=== PATIENT | female | born 1970 | race Hispanic/Latino ===

== ENCOUNTER → 2018-10-11 | Outpatient (CLI) | payer OTHER ==
[~2018-10-11] MED LIST: ANASTROZOLE1 MG PO; LEXAPRO10 MG PO; LISINOPRIL10 MG PO; NITROFURANTOIN100 MG PO
--- NOTE | 2018-10-11 14:45 | Diagnostic Imaging Report ---
Exam: KUB - 2 views Clinical History: Renal calculi Comparison: None. Findings: There are 2 focal calcific densities overlying the mid to lower pole of the right kidney, the more superior of which measures 3 mm and more inferior of which measures 5 mm. Right nephroureteral stent is in place. Possible approximately 7mm calcific density overlying the mid to upper pole of left kidney. Phleboliths overlie the pelvis. The osseous structures appear unremarkable. Nonobstructive bowel gas pattern. Impression: Two lower pole right renal calculi as above with right nephroureteral stent in place. Possible 7mm left renal calculus. Signed by: Garth Reid MD on 10/11/2018 2:42 PM
== END ==
LOC: RAD 13:43
PROVIDERS: ATTEND Urology
DX: N20.0 Calculus of kidney (principal)
CPT/HCPCS: 74018

== ENCOUNTER → 2018-10-12 | Day surgery (SDC) | payer OTHER ==
[~2018-10-12] MED LIST changes: +B&O 60MG R/S 60 MG SUPP PR ONE; +CEFTRIAXONE SOD 1 GM/NS 50 ML 50 ML IV ONE; +DEXAMETHASONE SOD PHOS INJ 4 MG/ML VIAL ONE; +FENTANYL CITRATE/PF 100MCG/2 ML INJ ONE; +IOPAMIDOL 610MG/1ML 300 MG/ML VIAL IV ONE; +LIDOCAINE HCL 2% LOCAL INJ 5 ML SDV VIAL INJ ONE; +MIDAZOLAM HCL 2 MG/2 ML VIAL ONE; +ONDANSETRON HCL INJ 2MG/ML 2ML 2 MG/ML VIAL ONE; +PROPOFOL IV EMULSION 10 MG/ML 20 ML VIAL ONE; +SEVOFLURANE INHAL SOLN 250 ML PEN BTL ONE; +VANCOMYCIN 1GM/NS 250 ML 250 ML ONE
--- OUTSIDE RECORDS SUMMARY | 2018-10-12 06:21 | XMS REPORT | Clinical Summary ---
Author Author [facility] Address Unknown Phone Unavailable Care Team Providers Care Flap Curer Name Role Phone Ketan Acosta MD PCP Allergies No Known Allergies Medications End Date Status Medication Sig Dispensed Refills Start Date Active anastrozole (ARIMIDEX) 1 Take 1 mg by 0 mg chemo tablet mouth. 8 Active cholecalciferol, vitamin Take 4,000 0 D3, 400 unit/drop drops Units by 5 mouth. Active lisinopril 0 (PRINIVIL,ZESTRIL) 10 mg 9 tablet Active escitalopram (LEXAPRO) 20 TAKE 1 TABLET 0 MG tablet (20 MG TOTAL) 7 BY MOUTH DAILY. Active Problems Not on file Encounters Care Team Description Date Type Specialty Stewart De Luna Jr., MD Flank pain (Primary Dx) 07/17/2018 Emergency Emergency Medicine after 10/11/2017 Social History Date Tobacco Use Types Packs/Day Years Used Never Smoker Smokeless Tobacco: Never Used Alcohol Use Drinks/Week oz/Week Comments Yes Sex Assigned at Date Recorded Not on file Industry Job Start Date Occupation Not on file Not on file Not on file Travel End Travel History Travel Start No recent travel history available. Last Filed Vital Signs Time Taken Vital Sign Reading 07/17/2018 6:43 PM CDT Blood Pressure 157/95 07/17/2018 6:43 PM CDT Pulse 70 07/17/2018 6:43 PM CDT Temperature 37.1 C (98.8 F) 07/17/2018 6:43 PM CDT Respiratory Rate 20 07/17/2018 6:43 PM CDT Oxygen Saturation 98% - Inhaled Oxygen - Concentration 07/17/2018 6:43 PM CDT Weight 81.6 kg (180 lb) 07/17/2018 6:43 PM CDT Height 162.6 cm (5' 4") 07/17/2018 6:43 PM CDT Body Mass Index 30.9 Plan of Treatment Health Maintenance Due Date Last Done Comments INFLUENZA VACCINE 11/03/2018 Procedures Comments Procedure Name Priority Date/Time Associated Diagnosis ESTIMATED GFR STAT 07/17/2018 7:42 PM CDT LIPASE LEVEL STAT 07/17/2018 7:42 PM CDT COMPREHENSIVE METABOLIC STAT 07/17/2018 PANEL 7:42 PM CDT HC COMPLETE BLD COUNT STAT 07/17/2018 W/AUTO DIFF 7:42 PM CDT GRAM STAIN STAT 07/17/2018 7:18 PM CDT URINE CULTURE STAT 07/17/2018 7:18 PM CDT HCG QUALITATIVE, URINE STAT 07/17/2018 SCREEN 6:45 PM CDT URINALYSIS SCREEN AND STAT 07/17/2018 MICROSCOPY, WITH REFLEX 6:45 PM CDT TO CULTURE after 10/11/2017 Results * Estimated GFR (07/17/2018 7:42 PM CDT) Estimated GFR 88 mL/min/1.73 m2 [place] Comment: JOSEPH CANDELARIA [facility] G1 >=90 Normal or high G2 60-89Mildly decreased J0i77-80 Mildly to moderately decreased Q4i25-86 Moderately to severely decreased G4 15-29Severely decreased G5 <15Kidney failure The eGFR was calculated using the Chronic Kidney Disease Epidemiology Collaboration (CKD-EPI) equation. Interpretation is based on recommendations of the National Kidney Foundation-Kidney Disease Outcomes Quality Initiative (NKF-KDOQI) published in 2014. Specimen Plasma specimen Performing Organization Address City/State/Zipcode Phone Number [facility] [address] [place] [address] PATHOLOGY AND GENOMIC MEDICINE [place] [facility] [address] [place], [place] [id number] [place] [address] * CBC with platelet and differential (07/17/2018 7:42 PM CDT) WBC 11.7 (H) 4.2 - 11.0 k/uL [facility] RBC 4.34 4.04 - 5.86 m/uL [facility] HGB 12.9 11.5 - 15.3 g/dL [facility] HCT 38.8 34.0 - 45.0 % [facility] MCV 89.4 80.0 - 98.[address] [facility] MCH 29.7 27.0 - 34.[address] [facility] MCHC 33.2 31.5 - 36.5 g/dL [facility] RDW - SD 39.3 37.0 - 51.[address] [facility] MPV 10.0 7.4 - 10.[address] [facility] Platelet count 211 150 - 400 k/uL [facility] Nucleated RBC 0.00 /[address] [facility] Neutrophils 72.1 (H) 36.0 - 66.0 % [facility] Lymphocytes 19.3 (L) 24.0 - 44.0 % [facility] Monocytes 7.1 (H) 0.0 - 6.0 % [facility] Eosinophils 0.9 0.0 - 6.0 % [facility] Basophils 0.3 0.0 - 1.2 % [facility] Immature 0.3 0.0 - 1.0 % [place] granulocytes [facility] Specimen Blood Performing Organization Address City/State/Zipcode Phone Number [address] [address] PATHOLOGY AND GENOMIC MEDICINE [address] * Lipase level (07/17/2018 7:42 PM CDT) Lipase 33 13 - 60 U/L [facility] Specimen Plasma specimen Performing Organization Address City/[facility]/Zipcode Phone Number [address] [place] [address] PATHOLOGY AND GENOMIC MEDICINE [facility] [address] * Comprehensive metabolic panel (07/17/2018 7:42 PM CDT) Pathologist [facility] Sodium 137 135 - 150 mEq/L [facility] Potassium 3.7 3.5 - 5.0 mEq/L [facility] Chloride 97 (L) 98 - 112 mEq/L [facility] CO2 24 24 - 31 mmol/L [facility] Anion gap 16@ANIO (H) 7 - 15 mEq/L [facility] BUN 22 (H) 7 - 18 mg/dL [facility] Creatinine 0.80 0.50 - 0.90 mg/dL [facility] Glucose 118 (H) 65 - 100 mg/dL [facility] Calcium 9.8 8.3 - 10.2 mg/dL [facility] Protein 8.1 6.3 - 8.3 g/dL [facility] Albumin 4.2 3.5 - 5.0 g/dL [facility] A/G ratio 1.1 0.7 - 3.8 [facility] Alkaline 90 0 - 104 U/L [place] phosphatase [facility] AST 19 10 - 35 U/L [facility] ALT 23 5 - 50 U/L [facility] Total bilirubin 0.4 0.2 - 1.2 mg/dL [facility] Specimen Plasma specimen Performing Organization Address City/[facility] Phone Number [facility] [address] [place] [phone] PATHOLOGY AND GENOMIC MEDICINE [facility] [address] * Gram stain (07/17/2018 7:18 PM CDT) Gram stain Occasional WBC's [place] result No organisms seen [facility] Comment: HOSPITAL Specimen Information Specimen Source: Urine Specimen Site: Clean catch Specimen Urine - VB3 Performing Organization Address City/[facility]/Zipcode Phone Number [facility] DEPARTMENT OF [address] [place] [address] PATHOLOGY [place] [address] HOSPITAL * Urine culture (07/17/2018 7:18 PM CDT) Urine culture Mixed janel 10-4 col/cc [place] isolate Comment: PENT[facility]OSTALISM Specimen Information HOSPITAL Specimen Source: Urine Specimen Site: Clean catch Specimen Urine Performing Organization Address [facility] Cent[facility] Phone Number [facility] DEPARTMENT [address] [place] [phone] PATHOLOGY [place] [address] HOSPITAL * Urinalysis screen and microscopy, with reflex to culture (07/17/2018 6:45 PM CDT) Specimen site Clean catch [facility] Color, UA Pauline [facility] Appearance, UA Clear [facility] Specific 1.018 1.001 - 1.035 [place] gravity, [facility] pH, UA 5.0 5.0 - 8.5 [facility] Protein, UA Negative Negative [facility] Glucose, UA Negative Negative [facility] Ketones, UA Negative Negative [facility] Bilirubin, UA Negative Negative [facility] Blood, UA Large (A) Negative [facility] Nitrite, UA Positive (A) Negative [facility] Urobilinogen, 2.0 (A) <2.0 [facility] Leukocyte Small (A) Negative [place] esterase, UA [facility] Epithelial Few /HPF [place] cells, UA [facility] WBC, UA 10 (A) 0 - 5 /HPF [facility] RBC, UA 165 (H) 0 - 5 /HPF [facility] Bacteria, UA None seen None seen [facility] Yeast, UA None seen [facility] Yeast with None seen [place] [facility] Specimen Urine Performing Organization Address City/State/Zipcode Phone Number [facility] [address] [place] [address] PATHOLOGY AND GENOMIC MEDICINE [facility] [address] [place], [place] [phone] [place] [address] * hCG qualitative, urine screen (07/17/2018 6:45 PM CDT) hCG Negative Negative [facility] qualitative, Comment: JOSEPH CANDELARIA urine The manufacturers stated [facility] sensitivity of HcG test for HOSPITAL serum is >/=10 mIU/ml and urine is >/=20mIU/ml. Specimen Urine Performing Organization Address City/State/Zipcode Phone Number [facility] [address] [place] [address] PATHOLOGY AND GENOMIC MEDICINE [facility] CANDEL[facility] [address] [place], [place] [phone] [place] [address] after 10/11/2017 Insurance Type Payer Benefit Subscriber ID Effective Phone Address Plan / Dates Group Exchange BLANC EXCHANGE BLANC xxxxxxxxxx [id number] [employer] resent E EXCHANGE Advance Directives Patient has advance care planning documents on file. For more information, francis e contact: Cristian Groves [address] [place] [address]
--- OUTSIDE RECORDS SUMMARY | 2018-10-12 06:21 | XMS REPORT ---
Author [facility] Address Unknown Phone Unavailable Care Team Providers Care Warrant Clerk Name Role Phone OSCAR PASCUAL Unavailable Unavailable Payers Payer Name Policy Type Policy Number Effective Date Expiration Date Problems This patient has no known problems. Allergies, Adverse Reactions, Alerts This patient has no known allergies or adverse reactions. Medications This patient has no known medications. Encounters Start Date/Time End Date/Time Encounter Type Admission Type Attending [facility] Facility Care Department Encounter ID 2018-07-18 06:18:00 Inpatient U [facility] [id number] Results Test Description Test Time Test Comments Text Results Atomic Results Result Comments ABDOMEN-1VIEW (KUB) 2018-10-11 14:39:00 [place] [address] Patient Name: ANUJA GIBSON MR #: [id number] : 1970 Age/Sex: 48/F Req #: [id number] Adm Physician: Ordered by: OSCAR PASCUAL MD Report #: [id number] Location: [facility] Room/Bed: Procedure: [id number] DX/ABDOMEN-1VIEW (KUB) Exam Date: Exam Time: REPORT STATUS: Signed Exam: KUB - 2 views Clinical History: Renal calculi Comparison: None. Findings: There are 2 focal calcific densities overlying the mid to lower pole of the right kidney, the more superior of which measures 3 mm and more inferior of which measures 5 mm. Right nephroureteral stent is in place. Possible approximately 7mm calcific density overlying the mid to upper pole of left kidney. Phleboliths overlie the pelvis. The osseous structures appear unremarkable. Nonobstructive bowel gas pattern. Impression: Two lower pole right renal calculi as above with right nephroureteral stent in place. Possible 7mm left renal calculus. Signed by: Babak Reid MD on 10/11/2018 2:42 PM Dictated By: BABAK REID MD [id number] Transcribed By: JAX on 10/11/18 1442 COPY TO: OSCAR PASCUAL MD
--- OUTSIDE RECORDS SUMMARY | 2018-10-12 06:22 | XMS REPORT ---
Author Author Admin, [place] Organization [facility] Address [address] [facility] [address] [place] [phone] Phone Allergies, Adverse Reactions, Alerts Allergy Name Reaction Description Start Date Severity Status Provider No Known Allergies Analia Lemus [employer] Conditions or Problems Problem Name Problem Code Onset Date Status Entry Date Provider Comment Standard Description Annotate Nephrolithiasis 592.0 Active Vivi Rosales D.Anish. Calculus of kidney right kidney, hospitalized fo rthis 07/18/18, recommended stent after infection resolved; no fever or chills now, has hematuria only remaining UTI, acute 599.0 Active Vivi Rosales D.O. Urinary tract infection, site not specified BMI 31.0-31.9 Active Joe Ndiaye MD Body Mass Index 31.0-31.9, adult Hypertension benign essential 401.1 Active Romulo Saeed MD R3 Benign essential hypertension Obesity Active Romulo Saeed MD R3 Obesity, unspecified Carpal tunnel syndrome, bilateral upper limbs Active Domonique Braun MD (res) Paresthesia, hands 782.0 Active Domonique Braun MD (res) Disturbance of skin sensation Breast cancer, personal hx V10.3 Active Hellen Stockton MD Personal history of malignant neoplasm of breast DEPRESSION 296.20 Active Hellen Stockton MD Major depressive disorder, single episode, unspecified degree Hx of mastectomy, 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 Active Hellen Stockton MD Acquired absence of breast and nipple Medication List Medication Instructions Start Date Stop Date Generic Name NDC Status Provider Patient Instruction MACROBID 100 MG ORAL CAPSULE 1 by mouth twice a day x 1 week NITROFURANTOIN MONOHYD MACRO 46236240724 Active Vivi Rosales D.ODeanne Active LISINOPRIL 10 MG ORAL TABLET 1 by mouth every day LISINOPRIL 51209209072 Active Romulo Saeed MD R3 Active ANASTROZOLE 1 MG ORAL TABLET one tablet once daily ANASTROZOLE 46053208746 Active Romulo Saeed MD R3 Active ESCITALOPRAM OXALATE 20 MG ORAL TABLET one tablet once daily ESCITALOPRAM OXALATE 80836295446 Active Romulo Saeed MD R3 Active Vital Signs Date Name Value Unit Range Description blood pressure, diastolic 86 mm[Hg] BP rehman blood pressure, systolic 129 mm[Hg] BP sys height E&M 65 [in_us] Bdy height pulse rate E&M 84 /min Heart rate respiratory rate E&M 12 /min Resp rate temperature E&M 98.3 [degF] Body temperature weight E&M 184.38 [lb_av] Weight Measured blood pressure, diastolic 87 mm[Hg] BP rehman blood pressure, systolic 135 mm[Hg] BP sys height E&M 65 [in_us] Bdy height pulse rate E&M 64 /min Heart rate respiratory rate E&M 15 /min Resp rate temperature E&M 98.0 [degF] Body temperature weight E&M 191 [lb_av] Weight Measured blood pressure, diastolic, second observation 94 mm[Hg] BP rehman blood pressure, diastolic 92 mm[Hg] BP rehman blood pressure, systolic, second observation 141 mm[Hg] BP sys blood pressure, systolic 145 mm[Hg] BP sys height E&M 65 [in_us] Bdy height pulse rate E&M 68 /min Heart rate pulse rate #2 72 Heart rate respiratory rate E&M 17 /min Resp rate temperature E&M 98.2 [degF] Body temperature weight E&M 190.40 [lb_av] Weight Measured blood pressure, diastolic 92 mm[Hg] BP rehman blood pressure, systolic 138 mm[Hg] BP sys pulse rate E&M 70 /min Heart rate respiratory rate E&M 17 /min Resp rate temperature E&M 98.8 [degF] Body temperature weight E&M 190.80 [lb_av] Weight Measured Diagnostic Results Date Name Value Unit Range Description Lab Report: Fe+TIBC+Robert+B12+Folic, CBC With Differential/Platelet, Comp. ... - Chemistry thyroid stimulating hormone, serum 2.260 u[iU]/mL 0.450-4.500 chloride, serum 100 mmol/L 96-106 urea nitrogen, blood 15 mg/dL 6-24 Office Visit: Acute Visit - Urinalysis leukocyte esterase, urine, by dipstick 3+ Lab Report: Fe+TIBC+Robert+B12+Folic, CBC With Differential/Platelet, Comp. ... - Hematology mean corpuscular hemoglobin concentration, RBC 34.7 G/DL % 31.5-35.7 Office Visit: Acute Visit - Urinalysis nitrite, urine, semiquantitative negative Lab Report: Fe+TIBC+Robert+B12+Folic, CBC With Differential/Platelet, Comp. ... - Hematology erythrocyte (RBC) count 4.29 X10E6/UL 10*6/mm3 3.77-5.28 Office Visit: Acute Visit - Urinalysis urine color yellow bilirubin, urine negative Lab Report: Fe+TIBC+Robert+B12+Folic, CBC With Differential/Platelet, Comp. ... - Chemistry Absolute Neutrophils 3.4 X10E3/UL 10*3/uL 1.4-7.0 urea nitrogen/creatinine ratio, serum 21 9-23 Lab Report: Fe+TIBC+Robert+B12+Folic, CBC With Differential/Platelet, Comp. ... - Hematology mean corpuscular volume, RBC 87 fL 79-97 Lab Report: Fe+TIBC+Robert+B12+Folic, CBC With Differential/Platelet, Comp. ... - Chemistry ferritin, serum 174 ng/mL 15-150 Lab Report: Fe+TIBC+Robert+B12+Folic, CBC With Differential/Platelet, Comp. ... - Hematology monocytes as percent of blood leukocytes 7 % Not Estab. Lab Report: Fe+TIBC+Robert+B12+Folic, CBC With Differential/Platelet, Comp. ... - Chemistry creatinine, serum 0.70 mg/dL 0.57-1.00 albumin/globulin ratio, serum 1.5 1.2-2.2 iron binding capacity, unsaturated 278 ug/dL 183-929 4702/06/14 bilirubin, serum, total 0.2 mg/dL 0.0-1.2 Lab Report: Fe+TIBC+Robert+B12+Folic, CBC With Differential/Platelet, Comp. ... - Hematology Eosinophil Absolute Count 0.2 X10E3/UL 10*3/uL 0.0-0.4 Office Visit: Acute Visit - Urinalysis appearance, urine clear blood in urine (hemoglobin) by dipstick 3+ Lab Report: Fe+TIBC+Robert+B12+Folic, CBC With Differential/Platelet, Comp. ... - Chemistry aspartate aminotransferase (SGOT), serum 17 U/L 0-40 B-12, serum 726 pg/mL 232-1245 Lab Report: Fe+TIBC+Robert+B12+Folic, CBC With Differential/Platelet, Comp. ... - Hematology red blood cell distribution width 13.8 % 12.3-15.4 Office Visit: Acute Visit - Urinalysis pH, urine, semiquantitative 5.5 Lab Report: Fe+TIBC+Robert+B12+Folic, CBC With Differential/Platelet, Comp. ... - Hematology leukocyte count, blood 6.7 X10E3/UL 10*3/mm3 3.4-10.8 Lab Report: Fe+TIBC+Robert+B12+Folic, CBC With Differential/Platelet, Comp. ... - Chemistry potassium, serum 4.1 mmol/L 3.5-5.2 albumin, serum 4.1 g/dL 3.5-5.5 immature granulocytes, percentage of total cells, blood 0 % Not Estab. Lab Report: Fe+TIBC+Robert+B12+Folic, CBC With Differential/Platelet, Comp. ... - Hematology lymphocyte count, blood, automated 2.6 X10E3/UL 10*3/mm3 0.7-3.1 hematocrit, blood 37.2 % 34.0-46.6 Lab Report: Urine Culture, Routine, Result - Urinalysis urine culture MUG Lab Report: Fe+TIBC+Robert+B12+Folic, CBC With Differential/Platelet, Comp. ... - Chemistry sodium, serum 141 mmol/L 134-144 Lab Report: Fe+TIBC+Robert+B12+Folic, CBC With Differential/Platelet, Comp. ... - Hematology neutrophils as percent of blood leukocytes 52 % Not Estab. basophils as percent of blood leukocytes 0 % Not Estab. Lab Report: Fe+TIBC+Robert+B12+Folic, CBC With Differential/Platelet, Comp. ... - Chemistry iron saturation percent, serum 16 % 15-55 folate, serum 9.8 ng/mL >3.0 iron, serum 53 ug/dL 27-159 Office Visit: Acute Visit - Urinalysis protein, urine, semiquantitative (dipstick) 2+ Lab Report: Fe+TIBC+Robert+B12+Folic, CBC With Differential/Platelet, Comp. ... - Chemistry carbon dioxide, venous blood 28 mmol/L 20-29 calcium, serum 9.9 mg/dL 8.7-10.2 alanine aminotransferase (SGPT), serum 18 U/L 0-32 Lab Report: Fe+TIBC+Robert+B12+Folic, CBC With Differential/Platelet, Comp. ... - Hematology mean corpuscular hemoglobin, RBC 30.1 pg 26.6-33.0 Office Visit: Acute Visit - Urinalysis specific gravity, urine 1.020 Lab Report: Fe+TIBC+Robert+B12+Folic, CBC With Differential/Platelet, Comp. ... - Chemistry protein, total, serum 6.8 g/dL 6.0-8.5 alkaline phosphatase, serum 95 U/L 39-117 Lab Report: Fe+TIBC+Robert+B12+Folic, CBC With Differential/Platelet, Comp. ... - Hematology hemoglobin, blood 12.9 g/dL 11.1-15.9 lymphocytes as percent of blood leukocytes 39 % Not Estab. Office Visit: Acute Visit - Urinalysis glucose, urine, semiquantitative negative Lab Report: Fe+TIBC+Robert+B12+Folic, CBC With Differential/Platelet, Comp. ... - Genetics/fertility eGFR if 120 mL/min/1.73m2 >59 Lab Report: Fe+TIBC+Robert+B12+Folic, CBC With Differential/Platelet, Comp. ... - Hematology basophil count, absolute 0.0 x10E3/uL 0.0-0.2 Lab Report: Fe+TIBC+Robert+B12+Folic, CBC With Differential/Platelet, Comp. ... - Chemistry globulin, serum 2.7 1.5-4.5 Estimated Glomerular Filtration Rate (calc) 104 mL/min/1.73m2 >59 Lab Report: Fe+TIBC+Robert+B12+Folic, CBC With Differential/Platelet, Comp. ... - Hematology eosinophils as percent of blood leukocytes 2 % Not Estab. Lab Report: Fe+TIBC+Robert+B12+Folic, CBC With Differential/Platelet, Comp. ... - Chemistry blood glucose, random 96 mg/dL 65-99 iron binding capacity, total 331 ug/dL 250-450 Office Visit: Acute Visit - Urinalysis urobilinogen, urine, semiquantitative (dipstick) negative Lab Report: Fe+TIBC+Robert+B12+Folic, CBC With Differential/Platelet, Comp. ... - Hematology monocyte count, blood, automated 0.5 X10E3/UL 10*3/uL 0.1-0.9 Office Visit: Acute Visit - Urinalysis ketones, urine, by test strip negative Lab Report: Fe+TIBC+Robert+B12+Folic, CBC With Differential/Platelet, Comp. ... - Hematology platelet count 179 X10E3/UL 10*3/mm3 150-379 Encounters Date Encounter Provider Code Facility 22:04:00 CDT Est Patient Exp Problem - 27817 Vivi Rosales D.O. CPT-60923 [facility] 11:58:28 [employer] FLOOR[employer]ERSON Est Patient Exp Problem - 27566 Romulo Saeed MD R3 CPT-34632 [facility] 14:56:30 [employer] FLOOR[employer]ERSON Est Patient Exp Problem - 90844 Romulo Saeed MD R3 CPT-23312 [facility] 13:02:07 CDT Est Patient Exp Problem - 62838 Domonique Braun MD (res) CPT-45831 [facility] 13:12:13 CDT New Patient Exp Problem - 43781 Hellen Stockton MD CPT-60176 [facility] Procedures Code Procedure Name Date Entry Date Standard Description CPT-80637 Urinalysis - Dip only - In House 12:21:07 CDT
[2018-10-12 10:40] VITALS: BP 120/80
--- NOTE | 2018-12-05 22:19 | Operative Report ---
DATE OF PROCEDURE: 10/12/2018 SURGEON: Kristopher Molina MD PREOPERATIVE DIAGNOSES: 1. Right ureterolithiasis. 2. Left nephrolithiasis. 3. . 4. Bilateral stents. 5. Urinary tract infections. POSTOPERATIVE DIAGNOSES: 1. Right ureterolithiasis. 2. Left nephrolithiasis. 3. . 4. Bilateral stents. 5. Urinary tract infections. 6. Grade 1-2 cystocele. 7. Grade 3 rectocele. 8. Urethral hypermobility. OPERATIONS PERFORMED: Note, these were all staged procedures as part of multi-stage, multi-step process in managing the patient's extensive urolithiasis. 1. Cystourethroscopy with complicated removal of right indwelling ureteral stent (separate procedure performed for the diagnosis of the right stent). 2. Right semi-rigid ureteroscopy with holmium laser lithotripsy and insertion of stent (separate procedure performed for the right ureterolithiasis). 3. Right ureteral pyeloscopy with holmium laser lithotripsy (separately performed for the right nephrolithiasis done with a flexible scope). 4. Cystourethroscopy with left ureteral catheterization and retrograde ureteropyelography (separately performed for the urinary tract infections). 5. Left ureteral pyeloscopy with holmium laser lithotripsy and insertion of stent (separate procedure performed for the left nephrolithiasis). 6. Radiological services for supervision and interpretation of ureteroscopy. 7. Interpretation of retrograde ureteropyelography. 8. Supervision of fluoroscopy, no radiologist present. 9. Pelvic examination under anesthesia. ANESTHESIA: General. COMPLICATIONS: None. CLINICAL SUMMARY: Pam Alejandra is a 48-year-old woman with bilateral urolithiasis and a right indwelling ureteral stone, and history of urinary tract infections. The patient had previously had an infected stone, has been on Macrobid. She was given vancomycin and Rocephin, is brought to the operating room for the above procedure. She is aware of the risks of bleeding, infection, injury to adjacent structures, need for additional procedures, and elected to proceed. OPERATIVE PROCEDURE IN DETAIL: Informed consent was verified. Justyn Orozco was properly identified, taken to the operating room, placed on the cystoscopy table in supine position. Anesthesia was uneventfully begun. The patient was then carefully, gently repositioned in the dorsal lithotomy position with all pressure points well padded. Her genitalia prepared and draped in usual sterile fashion. The cystoscope sheath with obturator in place was atraumatically inserted into the patient's urethra and bladder was drained. Panendoscopy revealed a stent emerging from the right ureteral orifice. A guidewire was then placed alongside the stent and guided to the level of the patient's kidney. The stent was then grasped, completely removed and discarded. Semi-rigid ureteroscope was then placed alongside the guidewire into the right ureter. We identified for a large stone burden. We proceeded performing holmium laser lithotripsy, breaking up the stone, extracting out fragments and then leaving a secondary guidewire. We went over the secondary guidewire and guided a flexible ureteroscope into the right kidney. We identified the stone. The procedure performed with holmium laser lithotripsy and breaking up the nephrolithiasis within the right kidney. Gonzalo's plaques were present throughout the right kidney. With cystoscopic/fluoroscopic guidance, a right-sided indwelling ureteral stent was then placed. It was coiled in the patient's kidney as well as the patient's bladder. The retaining suture was cut short. The cystoscope was reinserted and we cannulated the left ureter and retrograde ureteropyelograms were performed. We then placed a guidewire and over the guidewire, a flexible ureteroscope was then placed over the guidewire and guided to the level of the patient's kidney. We identified the stone. We performed holmium laser lithotripsy of the left nephrolithiasis until they were down to smaller size and grasped and extracted the stone fragments from there as well with a Nitinol tipless basket. With cystoscopic/fluoroscopic guidance, a left-sided indwelling ureteral stent was then placed. It was coiled in the patient's kidney as well as the patient's bladder. The retaining suture was cut short. Interpretation of retrograde ureteropyelography contrast was instilled in retrograde fashion via the ureteroscope. There was fullness of the right side compared to the left side. The stents were in good position, coiled the patient's kidneys as well as the patient's bladder at the end of the case. The patient's bladder was drained. Cystoscope was withdrawn. Pelvic examination revealed a grade 1-2 cystocele, grade 3 rectocele. There was urethral hypermobility present. No abnormal palpable pelvic masses could be appreciated. There were no obvious mucosal lesions. The patient was then uneventfully reversed from anesthesia and taken to the recovery room in stable condition. There were no complications to the procedure. She tolerated the procedure well. Explicit postop instructions were given. We will plan on returning the patient back to the operating room for bilateral ureteroscopy with removal of bilateral stents and hopefully, we will render the patient stent free and stone free at that time. Kristopher Molina MD [facility] /[id number]
== END | disposition home or self-care (01) ==
LOC: OR 06:16
PROVIDERS: ATTEND Urology
DX: N20.0 Calculus of kidney (principal); N20.1 Calculus of ureter; Z46.6 Encounter for fitting and adjustment of urinary device; N39.0 Urinary tract infection, site not specified; N13.30 Unspecified hydronephrosis; N39.41 Urge incontinence; R80.9 Proteinuria, unspecified; R35.1 Nocturia; N81.10 Cystocele, unspecified; N81.6 Rectocele; N36.41 Hypermobility of urethra; N28.89 Other specified disorders of kidney and ureter; E66.9 Obesity, unspecified; I10 Essential (primary) hypertension; F32.9 Major depressive disorder, single episode, unspecified; Z68.32 Body mass index [BMI] 32.0-32.9, adult
CPT/HCPCS: 52356; 74420; 88300; 93005; C1758; C1766; C1874 ×2; J0696; J1100; J2001; J2250; J2405; J2704; J3370; Q9967; C2617; J3010

== ENCOUNTER → 2019-02-28 | Outpatient (CLI) | payer OTHER ==
[~2019-02-28] MED LIST changes: -B&O 60MG R/S 60 MG SUPP PR ONE; -CEFTRIAXONE SOD 1 GM/NS 50 ML 50 ML IV ONE; -DEXAMETHASONE SOD PHOS INJ 4 MG/ML VIAL ONE; -FENTANYL CITRATE/PF 100MCG/2 ML INJ ONE; -IOPAMIDOL 610MG/1ML 300 MG/ML VIAL IV ONE; -LIDOCAINE HCL 2% LOCAL INJ 5 ML SDV VIAL INJ ONE; -MIDAZOLAM HCL 2 MG/2 ML VIAL ONE; -ONDANSETRON HCL INJ 2MG/ML 2ML 2 MG/ML VIAL ONE; -PROPOFOL IV EMULSION 10 MG/ML 20 ML VIAL ONE; -SEVOFLURANE INHAL SOLN 250 ML PEN BTL ONE; -VANCOMYCIN 1GM/NS 250 ML 250 ML ONE
--- NOTE | 2019-02-28 15:36 | Diagnostic Imaging Report ---
Exam: KUB - 2 views Indication: Renal calculus Comparison: KUB of 10/11/2018 Findings: Interval removal of right internal nephroureteral stent. No radiographically apparent right renal calculi. 2.5 mm left midpole renal calculus. Nonobstructive bowel gas pattern. No free air. Osseous structures appear unremarkable. Phleboliths in the pelvis. Impression: Interval removal right internal nephroureteral stent. 2.5 mm left midpole renal calculus. Signed by: Garth Reid MD on 02/28/2019 3:32 PM
== END ==
LOC: RAD 13:45
PROVIDERS: ATTEND Urology
DX: N20.0 Calculus of kidney (principal)
CPT/HCPCS: 74018